=== PATIENT | female | born 1950 | race Caucasian/White ===

== ENCOUNTER 2016-09-04 11:52 | Emergency (ER) | payer MEDICARE | END 2016-09-04 14:10 | disposition left against medical advice (07) | LOC: ER1 11:52 | DX: Z53.21 Procedure and treatment not carried out due to patient leaving prior to being seen by health care provider (principal) | CPT/HCPCS: 93005 ==

== ENCOUNTER → 2016-09-04 | Outpatient (CLI) | payer MEDICARE ==
[2016-09-04 10:44] LABS: HEMOGLOBIN 14.7 gm/dl (12.3-15.3); RED BLOOD COUNT 5.13 M/UL (4.00-5.10); WHITE BLOOD COUNT 20.6 K/UL (4.5-11.0)
[2016-09-04 10:59] LABS: BUN/CREATININE RATIO 12 (0-10)
== END ==
LOC: LAB 09:50
PROVIDERS: Internal Medicine
DX: E11.9 Type 2 diabetes mellitus without complications (principal); E78.5 Hyperlipidemia, unspecified; R53.83 Other fatigue; R53.81 Other malaise; I10 Essential (primary) hypertension
CPT/HCPCS: 36415; 80053; 80061; 83036; 85027

== ENCOUNTER → 2016-10-05 | Outpatient (CLI) | payer MEDICARE ==
[2016-10-05 10:07] LABS: HEMOGLOBIN 14.2 gm/dl (12.3-15.3); RED BLOOD COUNT 4.96 M/UL (4.00-5.10); WHITE BLOOD COUNT 19.7 K/UL (4.5-11.0)
[2016-10-05 10:32] LABS: BUN/CREATININE RATIO 18 (0-10)
== END ==
LOC: LAB 08:49
PROVIDERS: Internal Medicine
DX: R53.81 Other malaise (principal); R53.83 Other fatigue
CPT/HCPCS: 36415; 80053; 85027

== ENCOUNTER → 2020-06-30 | Outpatient (CLI) | payer MEDICARE, OTHER ==
[~2020-06-30] MED LIST: ALLEGRA ALLERG180 MG PO; ASPIR 8181 MG PO; BRILINTA 90 MG90 MG PO; CLARITIN10 M2 PO; CRESTOR40 MG PO; DIFLUCAN150 MG PO; FLONASE 0.05% N16 GM; IMDUR ER TAB 3030 MG PO; IMDUR ER TAB 6060 MG PO; LEVAQUIN500 MG PO; LEVEMIR100 UNIT/1 SQ; LISINOPRIL2.5 MG PO; LOPRESSOR 25 MG25 MG PO; MUCINEX600 MG PO; NITROGLYCERIN0.4 MG SL; NOVOLOG100 UNIT/1 SQ; PLAVIX 75 MG TA75 MG PO; TRULICITY0.75 MG/0. SQ; ULTRAM50 MG PO; VITAMIN D31000 UNIT PO; ZOFRAN4 MG PO
[2020-06-30 12:30] LABS: HEMOGLOBIN 11.1 gm/dl (12.3-15.3); RED BLOOD COUNT 4.38 M/UL (4.00-5.10); WHITE BLOOD COUNT 11.8 K/UL (4.5-11.0)
[2020-06-30 12:56] LABS: BUN/CREATININE RATIO 12 (0-10)
== END ==
LOC: LAB 11:38
PROVIDERS: Family Medicine
DX: I25.10 Atherosclerotic heart disease of native coronary artery without angina pectoris (principal); R94.30 Abnormal result of cardiovascular function study, unspecified; E11.9 Type 2 diabetes mellitus without complications; I10 Essential (primary) hypertension; R07.9 Chest pain, unspecified; R94.31 Abnormal electrocardiogram [ECG] [EKG]
CPT/HCPCS: 36415; 80048; 85025; 85610; 85730; 93005

== ENCOUNTER → 2020-07-04 | Outpatient (CLI) | payer MEDICARE, OTHER | END | disposition home or self-care (01) | LOC: CATH 07:31 | DX: I25.118 Atherosclerotic heart disease of native coronary artery with other forms of angina pectoris (principal); T82.855A Stenosis of coronary artery stent, initial encounter; E11.9 Type 2 diabetes mellitus without complications; E78.5 Hyperlipidemia, unspecified; F41.9 Anxiety disorder, unspecified; I10 Essential (primary) hypertension; F17.210 Nicotine dependence, cigarettes, uncomplicated; Z79.4 Long term (current) use of insulin; Z83.3 Family history of diabetes mellitus; Z82.49 Family history of ischemic heart disease and other diseases of the circulatory system; Z79.82 Long term (current) use of aspirin; Z88.5 Allergy status to narcotic agent; Z88.2 Allergy status to sulfonamides; Z79.899 Other long term (current) drug therapy; Z95.5 Presence of coronary angioplasty implant and graft | CPT/HCPCS: 82962; 99152; C1769; J1644; J2250; J3010; J7030; Q9965 ==

== ENCOUNTER → 2021-02-14 | Outpatient (CLI) | payer MEDICARE | LOC: HEART 5 13:08 | DX: R07.9 Chest pain, unspecified (principal); I20.9 Angina pectoris, unspecified; I25.10 Atherosclerotic heart disease of native coronary artery without angina pectoris | CPT/HCPCS: 93306 ==

== ENCOUNTER → 2021-04-10 | Outpatient (CLI) | payer MEDICARE | LOC: LAB 10:01 | DX: E78.5 Hyperlipidemia, unspecified (principal); I10 Essential (primary) hypertension | CPT/HCPCS: 36415; 80061 ==

== ENCOUNTER 2021-10-04 03:08 | Emergency (ER) | payer MEDICARE ==
[~2021-10-04 03:08] MED LIST changes: -[UNRECOGNIZED DRUG - SUPPLY]
[2021-10-04 03:50] LABS: HEMOGLOBIN 12.4 gm/dl (12.3-15.3); RED BLOOD COUNT 4.37 M/UL (4.00-5.10); WHITE BLOOD COUNT 14.3 K/UL (4.5-11.0)
[2021-10-04 06:01] LABS: BUN/CREATININE RATIO 9 (0-10)
[2021-10-04] MEDS ORDERED: [UNRECOGNIZED DRUG - SUPPLY] (08:19)
== END 2021-10-04 08:25 | disposition home or self-care (01) ==
LOC: ER1 03:08
PROVIDERS: Physician Assistant
DX: R00.2 Palpitations (principal); I51.9 Heart disease, unspecified; I25.2 Old myocardial infarction; E11.9 Type 2 diabetes mellitus without complications; F17.210 Nicotine dependence, cigarettes, uncomplicated; Z88.2 Allergy status to sulfonamides; Z88.5 Allergy status to narcotic agent
CPT/HCPCS: 71045; 80053; 81001; 82550; 82553; 83880; 84439; 84443; 84484; 85025; 87086; 93005; 99285

== ENCOUNTER → 2021-10-04 | Outpatient (CLI) | payer MEDICARE ==
[~2021-10-04] MED LIST changes: +[UNRECOGNIZED DRUG - SUPPLY]
== END ==
LOC: HEART 5 08:46
DX: R00.2 Palpitations (principal)